=== PATIENT | male | born 1985 | race African-American/Black ===

== ENCOUNTER 2023-02-05 08:28 | Emergency (ER) | payer OTHER ==
[2023-02-05 08:36] VITALS: BP 132/74; PULSE 74; RESP 18; TEMP 98.3; BMI 23.7
[2023-02-05] MEDS ORDERED: ACETAMINOPHEN 500 MG TABLET (FP) PO ONE (09:39)
[2023-02-05] MEDS ORDERED: KETOROLAC TROMETHAMINE 30 MG/1 ML VIAL IM ONE (09:39)
[2023-02-05] MEDS ORDERED: METHOCARBAMOL 750 MG TABLET PO ONE (09:40)
[2023-02-05] MEDS ORDERED: METHOCARBAMOL 500 MG TABLET ONE (09:45)
[2023-02-05] MEDS ORDERED: KETOROLAC TROMETHAMINE 30 MG/1 ML VIAL ONE (09:45)
[2023-02-05] MEDS ORDERED: ACETAMINOPHEN 500 MG TABLET (FP) ONE (09:46)
== END 2023-02-05 11:38 | disposition home or self-care (01) ==
LOC: JERFT 08:28 → JER 08:28 → JERFT 11:38
PROC: 3E0233Z Introduction of Anti-inflammatory into Muscle, Percutaneous Approach (ICD-10-PCS; principal; 2023-02-05)
DX: M54.50 Low back pain, unspecified (principal); V43.02XA Car driver injured in collision with other type car in nontraffic accident, initial encounter; Y92.481 Parking lot as the place of occurrence of the external cause
CPT/HCPCS: 72100-TC-FY; 99284-25